=== PATIENT | male | born 1980 | race Caucasian/White ===

== ENCOUNTER 2019-12-09 14:15 | Outpatient (CLI) | payer OTHER ==
[2019-12-09 17:05] LABS: CALCIUM 9.5 mg/dL (8.5-10.3); CREATININE 0.8 mg/dL (0.6-1.2)
== END 2019-12-09 23:59 | disposition home or self-care (01) ==
LOC: LAB.R 14:15
PROVIDERS: ATTEND Registered Nurse
DX: I10 Essential (primary) hypertension (principal)
CPT/HCPCS: 80048

== ENCOUNTER 2019-12-09 22:17 | Emergency (ER) | payer OTHER ==
--- NOTE | 2019-12-09 22:20 | ED Physician Documentation ---
History of Present Illness - Stated complaint Stated Complaint: CP - History obtained from History obtained from: Patient - Additonal information Additional information: Patient is a 38-year-old male who presents with palpitations and chest discomfort. He does report a history of hypertension. He does present from law enforcement facility. He denies any syncopal episodes he reports that he had taken a trazodone tonight to help with sleep and then he felt some palpitations. Currently he denies chest pain he denies syncope.He denies any known history of pulmonary embolism or DVT or IA.Denies any recent fevers or coughs. Review of Systems Constitutional: reports: Reviewed and negative Eyes: reports: Reviewed and negative Ears: reports: Reviewed and negative Nose: reports: Reviewed and negative Throat: reports: Reviewed and negative Cardiac: reports: Palpitations Respiratory: reports: Reviewed and negative GI: reports: Reviewed and negative : reports: Reviewed and negative Skin: reports: Reviewed and negative Musculoskeletal: reports: Reviewed and negative Neurologic: reports: Reviewed and negative Psychiatric: reports: Reviewed and negative Endocrine: reports: Reviewed and negative Immunocompromised: reports: Reviewed and negative PD PAST MEDICAL HISTORY - Past Medical History Cardiovascular: Hypertension Respiratory: Asthma - Past Surgical History Past Surgical History: Yes Ortho: Arthroscopic surgery - Present Medications Home Medications: Ambulatory Orders Medication Instructions Recorded Confirmed Albuterol 11/25/19 Furosemide [Lasix] 20 mg PO DAILY 11/25/19 11/25/19 Metoprolol Succinate 50 mg PO 11/25/19 lisinopriL [Lisinopril] 5 mg PO 11/25/19 - Allergies Allergies/Adverse Reactions: Allergies Allergy/AdvReac Type Severity Reaction Status Date / Time No Known Drug Allergies Allergy Verified 12/09/19 22:31 - Social History Does the pt smoke?: No Smoking Status: Never smoker Does the pt drink ETOH?: No Does the pt have substance abuse?: No - Immunizations Immunizations are current?: Yes - POLST Patient has POLST: No PD ED PE NORMAL - Vitals Vital signs reviewed: Yes - General General: Alert and oriented X 3, No acute distress, Well developed/nourished - HEENT HEENT: PERRL, Moist mucous membranes - Neck Neck: Supple, no meningeal sign, No adenopathy, Thyroid normal - Cardiac Cardiac: RRR, No murmur, Strong equal pulses - Respiratory Respiratory: No respiratory distress, Clear bilaterally - Abdomen Abdomen: Normal bowel sounds, Soft, Non tender, Non distended, No organomegaly - Male Male : Deferred - Rectal Rectal: Deferred - Back Back: No CVA TTP, No spinal TTP - Derm Derm: Normal color, Warm and dry, No rash - Extremities Extremities: No deformity, No tenderness to palpate, Normal ROM s pain, No edema, No calf tenderness / cord - Neuro Neuro: Alert and oriented X 3, aircraft cleaner 2-12 intact, No motor deficit, No sensory deficit, Normal speech - Psych Psych: Normal mood, Normal affect Results - Vitals Vitals: Vital Signs - 24 hr 12/09/19 12/09/19 22:20 23:41 Temperature 37.2 C Heart Rate 64 70 Respiratory 20 19 Rate Blood Pressure 151/103 H 136/93 H O2 Saturation 96 94 Oxygen O2 Source Room air - EKG (time done) 22:22 Rate: Other (No STEMI) - Labs Labs: Laboratory Tests 12/09/19 12/09/19 12/09/19 22:50 22:50 22:50 WBC 10.0 RBC 5.05 Hgb 14.5 Hct 42.8 MCV 84.8 MCH 28.7 MCHC 33.9 RDW 13.1 Plt Count 236 MPV 9.3 Neut # (Auto) 4.9 Lymph # (Auto) 4.1 H Waller # (Auto) 0.8 Eos # (Auto) 0.1 Baso # (Auto) 0.1 Absolute Nucleated RBC 0.00 Nucleated RBC % 0.0 PT 13.1 H INR 1.2 APTT 34.8 H Sodium 139 Potassium 3.1 L Chloride 98 L Carbon Dioxide 29 Anion Gap 12.0 BUN 12 Creatinine 0.7 Estimated GFR (MDRD) 125 Glucose 100 Calcium 9.2 Troponin I High Sens B-Natriuretic Peptide Urine Opiates Screen Ur Oxycodone Screen Urine Methadone Screen Ur Propoxyphene Screen Ur Barbiturates Screen Ur Tricyclics Screen Ur Phencyclidine Scrn Ur Amphetamine Screen U Methamphetamines Scrn U Benzodiazepines Scrn Urine Cocaine Screen U Cannabinoids Screen Ethyl Alcohol < 5.0 12/09/19 12/09/19 12/09/19 22:50 22:50 23:39 WBC RBC Hgb Hct MCV MCH MCHC RDW Plt Count MPV Neut # (Auto) Lymph # (Auto) Waller # (Auto) Eos # (Auto) Baso # (Auto) Absolute Nucleated RBC Nucleated RBC % PT INR APTT Sodium Potassium Chloride Carbon Dioxide Anion Gap BUN Creatinine Estimated GFR (MDRD) Glucose Calcium Troponin I High Sens 3.3 B-Natriuretic Peptide 39 Urine Opiates Screen NEGATIVE Ur Oxycodone Screen NEGATIVE Urine Methadone Screen NEGATIVE Ur Propoxyphene Screen NEGATIVE Ur Barbiturates Screen NEGATIVE Ur Tricyclics Screen NEGATIVE Ur Phencyclidine Scrn NEGATIVE Ur Amphetamine Screen NEGATIVE U Methamphetamines Scrn NEGATIVE U Benzodiazepines Scrn NEGATIVE Urine Cocaine Screen NEGATIVE U Cannabinoids Screen NEGATIVE Ethyl Alcohol PD MEDICAL DECISION MAKING - ED course Complexity details: reviewed results, re-evaluated patient, considered differential (Patient has no chest pain currently EKG shows no STEMI chest x-ray is negative troponins negative. He has good medical follow-up tomorrow.), d/w patient, d/w family, other (History is not concerning for PE.EKG is negative troponins negative chest x-ray is negative.) Departure - Departure Disposition: 01 Home, Self Care Clinical Impression: Palpitations Condition: Stable Instructions: ED Palpitations Follow-Up: your, doctor [Other] - Tomorrow Discharge Date/Time: 12/10/19 00:00
[2019-12-09 22:57] LABS: BASOPHILS # (AUTO) 0.1 10^3/uL (0.0-0.1); BASOPHILS % (AUTO) 0.9 %; EOSINOPHILS # (AUTO) 0.1 10^3/uL (0.0-0.7); EOSINOPHILS % (AUTO) 1.4 %; HGB - HEMOGLOBIN 14.5 g/dL (14.0-18.0); LYMPHOCYTES # (AUTO) 4.1 10^3/uL (1.5-3.5); LYMPHOCYTES % (AUTO) 40.9 %; MEAN CORPUSCULAR HEMOGLOBIN 28.7 pg (27.0-31.0); MEAN CORPUSCULAR HGB CONC 33.9 g/dL (32.0-36.0); MEAN CORPUSCULAR VOLUME 84.8 fL (80.0-94.0); MEAN PLATELET VOLUME 9.3 fL (7.4-11.4); MONOCYTES # (AUTO) 0.8 10^3/uL (0.0-1.0); MONOCYTES % (AUTO) 7.9 %; NEUTROPHILS # (AUTO) 4.9 10^3/uL (1.5-6.6); NEUTROPHILS % (AUTO) 48.5 %; PLT - PLATELET COUNT 236 10^3/uL (130-450); RED BLOOD COUNT 5.05 10^6/uL (4.70-6.10); RED CELL DISTRIBUTION WIDTH 13.1 % (12.0-15.0)
[2019-12-09 23:03] LABS: INR 1.2 (0.8-1.2); PT - PROTHROMBIN TIME 13.1 secs (9.9-12.6)
[2019-12-09 23:08] LABS: BUN - BLOOD UREA NITROGEN 12 mg/dL (6-20); CALCIUM 9.2 mg/dL (8.5-10.3); CARBON DIOXIDE - CO2 29 mmol/L (21-32); CHLORIDE 98 mmol/L (101-111); CREATININE 0.7 mg/dL (0.6-1.2); GLUCOSE 100 mg/dL (70-100); SODIUM 139 mmol/L (135-145)
[2019-12-09 23:10] LABS: PARTIAL THROMBOPLASTIN TIME 34.8 secs (24.9-33.3)
[2019-12-09 23:42] VITALS: BP 136/93
[2019-12-09 23:43] LABS: MUDS CUTOFF CONCENTRATIONS CUTOFF CONC BELOW:
[2019-12-09 23:56] LABS: AMPHETAMINE SCREEN,URINE NEGATIVE (NEGATIVE); BENZODIAZEPINES SCREEN, URINE NEGATIVE (NEGATIVE); COCAINE SCREEN URINE NEGATIVE (NEGATIVE); METHADONE SCREEN, URINE NEGATIVE (NEGATIVE); METHAMPHETAMINES SCREEN, URINE NEGATIVE (NEGATIVE); OPIATE SCREEN, URINE NEGATIVE (NEGATIVE); OXYCODONE SCREEN, URINE NEGATIVE (NEGATIVE); PROPOXYPHENE SCREEN, URINE NEGATIVE (NEGATIVE); TRICYCLIC ANTIDEPRESSANT,URINE NEGATIVE (NEGATIVE)
--- NOTE | 2019-12-10 10:56 | XRAY Report ---
PROCEDURE: Chest 1 View X-Ray INDICATIONS: cp TECHNIQUE: One view of the chest was acquired. COMPARISON: 11/25/2019 FINDINGS: Surgical changes and devices: None. Lungs and pleura: No pleural effusions or pneumothorax. Lungs are clear. Mediastinum: Mediastinal contours appear normal. Heart size is normal. Bones and chest wall: No suspicious bony lesions. Overlying soft tissues appear unremarkable. IMPRESSION: No evidence acute pulmonary process. A preliminary report with the above findings was provided at the time of the study by [facility]. Reviewed by: David Haskins MD on 12/10/2019 10:55 AM PDT Approved by: David Haskins MD on 12/10/2019 10:55 AM PDT Station ID: [id number]
== END 2019-12-10 | disposition home or self-care (01) ==
LOC: ED 22:17
DX: R00.2 Palpitations (principal); I10 Essential (primary) hypertension
CPT/HCPCS: 36415; 71045; 80048; 80306; 80320; 83880; 84484; 85025; 85610; 85730; 93005; 99284; 99285

== ENCOUNTER 2019-12-18 08:00 | Outpatient (CLI) | payer OTHER ==
[2019-12-18 10:14] LABS: CALCIUM 9.2 mg/dL (8.5-10.3); CREATININE 0.7 mg/dL (0.6-1.2)
[2019-12-18 10:48] LABS: THYROID STIMULATING HORMONE 1.12 uIU/mL (0.34-5.60)
[2019-12-18 10:50] LABS: FREE T4 (FREE THYROXINE) 0.92 ng/dL (0.58-1.64)
== END 2019-12-18 23:59 | disposition home or self-care (01) ==
LOC: LAB.R 08:00
PROVIDERS: ATTEND Registered Nurse
DX: I10 Essential (primary) hypertension (principal); R60.9 Edema, unspecified
CPT/HCPCS: 80048; 84439; 84443

== ENCOUNTER 2019-12-26 09:35 | Outpatient (CLI) | payer OTHER | END 2019-12-26 23:59 | disposition home or self-care (01) | LOC: LAB.R 09:35 | PROVIDERS: ATTEND Registered Nurse | DX: R05 Cough (principal); Z20.828 Contact with and (suspected) exposure to other viral communicable diseases ==

== ENCOUNTER 2020-02-23 09:00 | Outpatient (CLI) | payer OTHER ==
[2020-02-23 09:51] LABS: BASOPHILS # (AUTO) 0.1 10^3/uL (0.0-0.1); EOSINOPHILS # (AUTO) 0.1 10^3/uL (0.0-0.7); EOSINOPHILS % (AUTO) 1.7 %; HGB - HEMOGLOBIN 14.8 g/dL (14.0-18.0); LYMPHOCYTES # (AUTO) 2.6 10^3/uL (1.5-3.5); LYMPHOCYTES % (AUTO) 38.2 %; MEAN CORPUSCULAR HEMOGLOBIN 29.2 pg (27.0-31.0); MEAN CORPUSCULAR HGB CONC 34.7 g/dL (32.0-36.0); MEAN CORPUSCULAR VOLUME 84.2 fL (80.0-94.0); MEAN PLATELET VOLUME 10.4 fL (7.4-11.4); MONOCYTES # (AUTO) 0.6 10^3/uL (0.0-1.0); MONOCYTES % (AUTO) 8.9 %; NEUTROPHILS # (AUTO) 3.4 10^3/uL (1.5-6.6); NEUTROPHILS % (AUTO) 49.8 %; PLT - PLATELET COUNT 244 10^3/uL (130-450); RED BLOOD COUNT 5.06 10^6/uL (4.70-6.10); RED CELL DISTRIBUTION WIDTH 13.3 % (12.0-15.0); WHITE BLOOD COUNT 6.9 x10^3/uL (4.8-10.8)
== END 2020-02-23 23:59 | disposition home or self-care (01) ==
LOC: LAB.R 09:00
PROVIDERS: ATTEND Registered Nurse
DX: I10 Essential (primary) hypertension (principal)
CPT/HCPCS: 85025